=== PATIENT | female | born 1955 | race American Indian/Alaskan Native ===

== ENCOUNTER 2019-10-02 10:44 | Inpatient (IN) | payer BC, OTHER ==
[~2019-10-02] VITALS: Ht 165.1 cm; Wt 61.2 kg
[~2019-10-02 10:44] MED LIST: ACYCLOVIR800 MG PO; ADVAIR 250-501 EACH INH; AMITRIPTYLINE H25 MG PO; B COMPLEX1 EACH PO; BACTRIM 400-801 EACH PO; CALCIUM CARBON650 MG PO; DIFLUCAN200 MG PO; DRONABINOL2.5 MG PO; FLAXSEED1000 MG PO; LORAZEPAM0.5 MG PO; LOTEMAX3.5 GM OPTH; MAG-OXIDE200 MG PO; ONDANSETRON ODT8 MG PO; PILOCARPINE HCL5 MG PO; REGLAN10 MG PO; RESTASIS1 DROP OD; SALAGEN5 MG PO; SERTRALINE HCL50 MG PO; TACROLIMUS0.5 MG PO; VITAMIN D350 MCG PO; WELLBUTRIN XL150 MG PO; ZOLPIDEM TARTRA10 MG PO
[2019-10-02] MEDS ORDERED: CIPROFLOXACIN500 MG PO (15:35)
[2019-10-02] MEDS ORDERED: ONDANSETRON ODT8 MG SL (15:58)
[2019-10-02] MEDS ORDERED: ALPRAZOLAM0.25 MG PO (15:59)
--- NOTE | 2019-10-02 17:23 | NUR ---
Medications reconciled using pharmacy records and patient interview
--- NOTE | 2019-10-02 17:33 | NUR ---
PT RESINT IN SEMIFOWLERS POSITION PT APPEARS TO HAVE TREMORS AND STATES "I FEEL SO COLD CAN I GET A WARM BLANKET". VS'S TAKEN PT FEBRILE TEMP 102.6 ORAL. BP 89/58 HR 108. PT DENIES PAIN NAUSEA OR SOB ON 1LPNC AND O2 SAT IS 91%. DR WASHINGTON NOTIFIED AND NEW ORDERS RECEIVED FOR BLOOD CX'S AND URINE CULTURES. NO FURTHER ORDERS AT THIS TIME. WILL CTM. CALL LIGHT AND H2O IN REACH. PT DNEIES FURTHER NEEDS OR CONCERNS.
--- NOTE | 2019-10-02 18:46 | NUR ---
IN TO SEE PATIENT. PT SITTING UP EATING DINNER AND DRINKING H2O. PT'S VS'S TAKEN -SEE VS FLOW SHEET. MD NOTIFIED OF ABNORMAL VS'S. MD TO PUT IN ORDER FOR 500ML BOLUS OF NS. NO FURTHER ORDERS AT THIS TIME. WILL CTM.
--- NOTE | 2019-10-02 19:20 | NUR ---
SHIFT REPORT RECEIVED FROM TOBYORDOMINICK DOTY. PT RESTING IN BED, IV BOLUS INFUSING, PRIMARY IV FLUIDS DELAYED. SITE WNL. PT ON 1LNC, RESPIRATIONS EVEN AND UNLABORED. NO DISTRESS NOTED, CALL LIGHT IN REACH.
--- NOTE | 2019-10-02 19:25 | NUR ---
ORE PUNCHER TO MIX NEW ORDER FOR IV VANCO. AWAITING MED.
--- NOTE | 2019-10-02 21:15 | NUR ---
BLAST FURNACE KEEPER HERE WITH IV VANCO. IV VANCO INFUSING PER MD ORDERS, IV SITE WNL. NO FURTHER NEEDS. CALL LIGHT IN REACH.
--- NOTE | 2019-10-02 21:30 | NUR ---
DR WASHINGTON MADE AWARE OF MOST RECENT BP RESULT OF 89/45, MAP OF 55, HR 95, ORAL TEMP OF 101.0. 96% ON 1LNC. PT UP 2PA TO BSC TO VOID, DIRECTIONS FOR CLEAN CATCH VERBALIZED TO PT. PT VERBALIZES UNDERSTANDING, 500 MLS OUTPUT NOTED. DARK YELLOW IN COLOR. UA SAMPLE COLLECTED BY THIS RN AND SENT TO LAB. PT BACK IN BED 1PA, DENIES DIZZINESS OR LIGHTHEADEDNESS AT THIS TIME. WILL CONTINUE TO MONITOR. DR WASHINGTON MADE AWARE OF ALL INFORMATION ABOVE. PREPARING PT FOR TRANSFER TO CCU. NO FURTHER NEEDS VERBALIZED BY PT AT THIS TIME, CALL LIGHT IN REACH.
--- NOTE | 2019-10-02 22:10 | NUR ---
TELEPHONE REPORT GIVEN TO CCU MARILOU HATHAWAY. ALL QUESTIONS ANSWERED. PT TRANSFERED VIA BED WITH HELP FROM MARILOU YATES TO CCU. BELONGINGS WITH PT IN CCU ROOM. CCU MARILOU HATHAWAY TO RESUME CARE FOR PT.
--- NOTE | 2019-10-02 23:16 | NUR ---
PT TO CCU PER BED AT 2213. IS AWAKE ALERT NO C/O EXCEPT FEELING TIRED. DR WASHINGTON IN DEPT. HAS IV ABX INFUSING. PT REQUESTING GRAHM CRACKERS AND WARM TEA. 2ND IV SITE STARTED AND LEVOPHED INFUSION STARTED ANT 5MCG/MIN AT 2240.
--- NOTE | 2019-10-03 00:36 | NUR ---
AWAKENS EASILY, HAD NOTED INTERMIT SHIVERING IN SLEEP, BUT JUST OF SHOULDER. NOW MORE GENERALIZED SHIVERING NOTED. T 102.9, GIVEN 650MG TYLENOL PO. UP TO BSC TO VOID. CONT ON LEVOPHED AT 3MCG/MIN.
--- NOTE | 2019-10-03 02:25 | NUR ---
UP TO BSC TO VOID. FLORESITA BEING UP WELL.
--- NOTE | 2019-10-03 03:55 | NUR ---
AWAKENED, INC SMALL AMT URINE, UP TO BSC TO VOID. FLORESITA WELL. CONT ON LEVOPHED AT 3CMG/MIN.
--- NOTE | 2019-10-03 04:36 | NUR ---
MIRTA AT 0230 PT AWAKE, C/O BACK PAIN, "IT'S HURTING PRETTY BAD". GIVEN 650MG TYLENOL.
--- NOTE | 2019-10-03 06:22 | NUR ---
AWAKE, UP TO VOID, FLORESITA WELL. C/O MILD GARCIA, GIVEN 650MG TYLENOL PO. CONTS ON LEVOPHED AT 3MCG/MIN
--- NOTE | 2019-10-03 07:30 | NUR ---
PATIENT RESTING IN BED WITH CALL LIGHT IN REACH. PATIENT CALLS APPROPRIATELY. PATIENT REMAINS ON LEVOPHED GTT. WILL TRY AND TITRATE APPROPRIATE. NO OTHER NEEDS AT THIS TIME. WILL CONTINUE TO CLOSELY MONITOR.
--- NOTE | 2019-10-03 09:30 | NUR ---
PATIENT RESTING IN BED. PATIENT HAS BEEN UP TO THE BEDSIDE CAMMODE WITH STAFF. PATIENT IS STABLE ON HER FEET, STAFF THERE TO MANAGE CORDS. PATIENT ASSESSMENT COMPELTED. BREATH SOUNDS CLEAR AND DIMINISHED. BOWEL TONES ACTIVE. PATIENT FINISHED BREAKFAST. FRESH WATER AT THE BEDSIDE. WILL CONTINUE TO CLOSELY MONITOR.
--- NOTE | 2019-10-03 11:25 | NUR ---
PT ALERT, ORIENTED AND FEELING SOMEWHAT IMPROVED. PT NIBBLED ON CRACKERS AND APPLESAUCE DURING VISIT. PT IS STRUGGLING WITH GOING TO HER DAUGHTERS DURING THIS TIME OF TREATMENT, WONDERING IF TREATMENT CAN BE MOVED DOWN TO [place] PT MENTIONED THAT HER PREVIOUS CANCER DRS WERE AT [facility] AND WOULD BE OF GREAT BENEFIT TO HER SHE FEELS. HER BREAST CANCER HAS RETURNED WITH METS TO BONE. PT ASKED IF SHE FELT A NEED, COULD I CONTACT [facility]. I LET HER KNOW THAT OF COURSE WE WOULD. PT REQUESTED PRAYER, I ENCOURAGED HER TO STRONGLY CONSIDER GOING TO HER DAUGHTERS'. SHE SAID SHE HAS DONE THIS BEFORE
--- NOTE | 2019-10-03 11:30 | NUR ---
PATIENT RSTING IN BED. PATIENT REMAINS ON 2MCG/MIN. WILL CONTINUE TO WEAN PATIENTS BLOOD PRESSURE CAN TOLERATE. WILL CONTINUE TO CLOSELY MONITOR.
--- NOTE | 2019-10-03 14:10 | NUR ---
PATIENT RESTING IN BED. DISCUSSED PLAN OF CARE WITH PATIENT. PATIENT AND FAMILY FILLED OUT POLST FORM. CASE MANAGEMENT WILL BE INTO DISCUSS DISHCHARGE PLANNING WITH PATIENT. PATIENT REQUESTED TO HAVE A BED BATH. PATIENT HAS BEEN ON AND OFF LEVOPHED GTT TODAY. PATIENT ONLY REQUIRING SMALL AMOUNTS. PATIENT LEVOPHED GTT AT 2MCG/MIN. WILL CONTINUE TO CLOSELY MONITOR.
--- NOTE | 2019-10-03 16:00 | NUR ---
Met with Anayeli who appears tired and ill. CM assessment completed and asked pt how I can help her. She request I help her write her wishes for her family. She is wanting to stop treatment and return to [place] near her children either to their home or to a hospice house. Pt lived in [place] in her 20s and returned 8 years ago to assist her mother. She would like her cousin, Cayden Villalba contacted and info passed to her: 1. She would like traditional dressing at her . 2. Small viewing at [facility] (small due to Covid virus) 3. [facility] near her grandmother. (Small due to covid virus) 4. She would like Yusuf Caputo to complete her service and sing at the cemetary. I will attempt to contact him for her. 5. She would like to write her own obituary. She does not want her sister to write her obit as they have had a falling out. I will find an obituary guide for her to follow. 6. She requests I contact the [place] to find how to access the fund. 7. When she passes, she would like body returned for burial in [place] within 3 days as is traditional. She requests I speak with Cayden about this. Discussed we will meet with her daughter tomorrow to discuss above. Called and spoke with luis daniel Richards. Cayden states she is over the fund and can work on this. Informed I will meet with pt and her daughter tomorrow. Cayden will contact Yusuf Caputo and speak with him or get his number so I may call. She will call me later or tomorrow. Will work with Anayeli to meet her goals of with dignity.
--- NOTE | 2019-10-03 16:00 | NUR ---
PATIENT RESTING IN BED. SPOKE WITH SIMBA ZAMARRIPA. SIMBA RN WAS IN TO SPEAK WITH PATIENT REGUARDING PLAN OF CARE AND HER WISHES AND DISCHARGE PLANS. NO OTHER NEEDS AT THIS TIME. WILL CONTINUE TO CLOSELY MONITOR.
--- NOTE | 2019-10-03 17:35 | NUR ---
UPDATED MD THAT PATIENTS FEVER UP TO 101.3. PER MD BLOOD CULTURES ORDERED. PATIENT WAS DOWN TO XRAY AND TOLERATED WELL. PATIENTS HR 100. BLOOD PRESSURE 103/65. WILL MONITOR AND TITRATE LEVOPHED OFF IF PATIETNS BLOOD PRESSURE CAN TOELRATE.
--- NOTE | 2019-10-03 18:45 | NUR ---
TITRATED LEVOPHED OFF AT 1845. WILL MONITOR PATIENTS BLOOD PRESSURE. MEDICATIONS ADMINISTERED. NO OTHER NEEDS AT THIS TIME. WILL CONTINUE TO CLOSELY MONITOR.
--- NOTE | 2019-10-03 20:15 | NUR ---
ASSESSMENT COMPLETED. PT DENIES PAIN. STATES SHE IS FEELING SLIGHTLY SOB, R.T. CALLED AND BREATHING TREATMENT GIVEN. LUNGS CLEAR/DIM, 1L O2 VIA NC IN PLACE. IV SITES PATENT, INFUSING WNL. RECHECKED TEMP: 99.3 ORALLY. FRESH WATER PROVIDED. PT DENIES FURTHER REQUESTS AT THIS TIME, CALL LIGHT WITHIN REACH.
--- NOTE | 2019-10-03 21:45 | NUR ---
LEVOPHED DRIP RESTARTED AT THIS TIME @ 2MCG/MIN, BP: 83/38(50), HR:93.
--- NOTE | 2019-10-03 22:40 | NUR ---
LEVOPHED DRIP TITRATED TO 1 MCG/MIN. BP: 101/50(63) HR: 98.
--- NOTE | 2019-10-03 23:15 | NUR ---
LEVOPHED TITRATED TO 2 MCG/MIN. BP: 86/43(54) HR: 95.
--- NOTE | 2019-10-04 | NUR ---
ASSESSMENT COMPLETED, NO CHANGES FROM PREVIOUS. REMAINS ON 4L O2 VIA NC. LEVOPHED CONTINUES TO REMAIN OFF. DENIES PAIN. UP TO BSC TO VOID AND RETURNED TO BED. SECOND UNIT OF BLOOD CONTINUES TO INFUSE. NO FURTHER REQUESTS, CALL LIGHT WITHIN REACH.
--- NOTE | 2019-10-04 00:20 | NUR ---
ASSESSMENT COMPLETED. PT CONTINUES TO DENY PAIN. TEMP 99.8, PRN TYLENOL GIVEN. LUNGS REMAIN CLEAR/DIM, 1L O2 VIA NC IN PLACE. HR REGULAR, LEVOPHED REMAINS AT 2 MCG/MIN. PT TO BSC TO VOID, PT REPORTS SLIGHT DYSPNEA WITH ACTIVITY. NO FURTHER REQUESTS AT THIS TIME, CALL LIGHT WITHIN REACH.
--- NOTE | 2019-10-04 00:20 | NUR ---
ASSESSMENT COMPLETED. PT CONTINUES TO DENY PAIN. TEMP 99.8, PRN TYLENOL GIVEN. LUNGS REMAIN CLEAR/DIM, 1L O2 VIA NC IN PLACE. HR REGULAR, LEVOPHED REMAINS AT 1 MCG/MIN. PT TO BSC TO VOID, PT REPORTS SLIGHT DYSPNEA WITH ACTIVITY. NO FURTHER REQUESTS AT THIS TIME, CALL LIGHT WITHIN REACH.
--- NOTE | 2019-10-04 01:30 | NUR ---
LEVOPHED TITRATED TO 4 MCG/MIN FOR BP 81/42(52) HR: 102.
--- NOTE | 2019-10-04 04:00 | NUR ---
ASSESSMENT COMPLETED, NO CHANGES FROM PREVIOUS. NEW BAG LEVOPHED HUNG, TITRATED TO 3 MCG/MIN FOR BP:113/61(73) HR:88. PT DENIES NEEDS AT THIS TIME, CALL DYLAN GILLILAND.
--- NOTE | 2019-10-04 04:45 | NUR ---
LEVOPHED TITRATED TO 4 MCG/MIN FOR BP: 87/41(53) HR:92.
--- NOTE | 2019-10-04 07:39 | NUR ---
PT IS ASLEEP RESP EVEN AND UNLABORED AT THIS TIME.
--- NOTE | 2019-10-04 08:00 | NUR ---
WHEN AWAKEN PT VS TAKE AND TEMP 100.2 ORAL, HAD PT USE THE is AT THE BEDSIDE AND TEMP DECREASED 99.8 ORAL AT 0820. BKF ORDER AND ALL QUESTIONS ANSWERED AT THIS TIME. LEVOPHED GTT DECREASED TO 2MCG AT THIS TIME 08:20
--- NOTE | 2019-10-04 09:00 | NUR ---
LEVOPHED DRIP INCREASED TO 4MCG DUE TO DECREASED BP AND MAP. O2 INCREASED TO 2L'S VIA NC DUE TO SPO2 88-86 ON 1L'S
--- NOTE | 2019-10-04 09:30 | NUR ---
Received a call from Cayden Ramirez, Anayeli's cousin. She states she is over the fund and Anayeli does not need to do anything to use, she will take care of this. She will also work with burial planning at [facility] near liliane's grandmother. She states [facility] will transport Anayeli to [place] when she passes. the traditional dressing is not possible due to covid, people are having the mortuary do this. She gave me Yusuf Kyaw Payton phone number, I was unable to contact or leave a message. Will give the number to Anayeli. Will speak with pt and daughter when daughter Kait visits today.
--- NOTE | 2019-10-04 09:47 | NUR ---
PT UP TO BS COMMODE, VOIDED AND BACK TO BED. WARM BLANKET GIVEN TO PT AND DR ORTEGA WENT INTO SEE HER AT THIS TIME.
--- NOTE | 2019-10-04 10:20 | NUR ---
LEVOPHED DRIP OFF AT THIS TIME. MAP 76 AT THIS TIME.
--- NOTE | 2019-10-04 10:37 | NUR ---
LEVOPHED DRIP OFF AT THIS TIME.
--- NOTE | 2019-10-04 12:51 | NUR ---
Called and spoke with Charles at [facility], community nurse. He states he can transport Anayeli to [place] as soon as the signs a certificate. He is also aware the the pilot station not doing the Dressing Ceremony and he has been completing, he requests daughter's call as they business is closed and open by appointment only. [facility] [phone].
--- NOTE | 2019-10-04 12:54 | NUR ---
PT AWAKE, DOES NOT WANT PERSONAL CARE DONE AT THIS TIME, WILL WAIT TILL HER DAUGHTER GETS HERE. RT REMAINS IN THE ROOM AT THIS TIME.
--- NOTE | 2019-10-04 13:09 | NUR ---
PT DAUGHTER IS HERE AT THIS TIME. WILL HAVE PICC LINE NURSE TO LOOK FOR IV SITE.
--- NOTE | 2019-10-04 14:54 | NUR ---
WAS ASKED TO START A SECOND LINE FOR THIS PT. ATTEMPTED TO OBTAIN IV ACCESS TWICE WITH THE ULTRASOUND. BOTH WERE UNSUCCESSFUL. THE SECOND IV ATTEMPT GAVE BLOOD RETURN BUT WAS SWELLING WITH EVERY FLUSH OF SALINE. IV DISCONTINUED. PRESSURE DRESSING APPLIED. PT'S RN NOTIFIED.
--- NOTE | 2019-10-04 15:33 | NUR ---
VAIBHAV SANTOYO UNABLE TO PLACE A MID LINE. WAS ABLE TO OBTAIN A SITE, BUT THE SITE WOULD BRUISE AND SWELLING NOTED, BUT ABLE TO GET BLOOD RETURN, THEN YOU WOULD FLUSH AGAIN WITH SALINE AND THE SITE WOULD SWELL. DR ORTEGA NOTIFIED OF THIS ISSUES WITH IV SITES AND THAT PT BP AT TIMES IS LESS THAN [address] MEDINA NOTIIFIED BY DR ORTEGA AND A CENTRAL LINE MAYBE PLACED. EXPLAINED THIS TO PT AND SHE UNDERSTANDS, BUT TOLD HER DR MEDINA WITH TALK WITH HER ALSO WHEN HE COMES INTO THE HOSPITAL. PT SIGNED BLOOD CONSENT AT THIS TIME, BUT BLOOD WILL NOT BE READY TILL MONDAY SOMETIME. 10-05-19 PER LAB.
--- NOTE | 2019-10-04 16:28 | NUR ---
PT TRYING TO REST AT THIS TIME, PT GIVEN ADDITIONAL ENSURE JUICE AT THIS TIME. PT DID NOT EAT LUNCH WAS NOT HUNGRY.
--- NOTE | 2019-10-04 18:57 | NUR ---
PT DAUGHTERS ARE HER AND BROUGHT IN DINNER FOR HER. CALLED INTO DR ORTEGA AND INFORMED HIM THAT THEY ARE HERE. HE WILL BE UP AFTER HIS VISIT TO THE ED.
--- NOTE | 2019-10-04 19:21 | NUR ---
TEMP INCREASED TYLENOL 650MG PO GIVEN AND COUGH MEDS GIVEN ALSO AT THIS TIME. DR ORTEGA INTO TALK WITH DAUGHTERS AT THIS TIME.
--- NOTE | 2019-10-04 20:00 | NUR ---
DR. ORTEGA IN ROOM TO SPEAK WITH PT AND DAUGHTER'S AT LENGTH ABOUT PLAN OF CARE AND THE CONSIDERATION FOR HOSPICE/PALLIATIVE CARE. ALL QUESTIONS ANSWERED, PATIENT AND FAMILY WISH TO GIVE THE ANTIBIOTICS A FEW MORE DAYS BEFORE THEY MAKE ANY DECISIONS ABOUT TRANSITIONING TO COMFORT CARE. ASSESSMENT COMPLETED-SEE DOCUMENTATION. CENTRAL LINE DRESSING CHANGED BECAUSE IT WAS COMING UP AT [facility]. STERILE PROCEDURE MAINTAINED. ALL 3 LUMES RETURN BLOOD AND FLUSH EASILY. CALL LIGHT WITHIN REACH.
--- NOTE | 2019-10-04 20:45 | NUR ---
FIRST UNIT OF BLOOD STARTED AT 2029, VERIFIED WITH MARILOU BOCANEGRA. BLOOD IS CMV NEGATIVE AND IRRADIATED. PT IS TOLERATING WELL, NO SIGNS OF ADVERSE REACTION NOTED.
--- NOTE | 2019-10-04 22:30 | NUR ---
FIRST UNIT OF BLOOD FINISHED. NO S/SX OF REACTION NOTED. VITAL SIGNS STABLE.
--- NOTE | 2019-10-04 23:05 | NUR ---
SECOND UNIT OF PRBC'S STARTED AT 2250, NO S/SX OF REACTION, PT TOLERTING WELL, VITAL SIGNS STABLE.
--- NOTE | 2019-10-05 02:15 | NUR ---
SECOND UNIT OF BLOOD COMPLETED AT THIS TIME. PT TOLERATED WELL, NO S/SX OF REACTION. VITAL SIGNS STABLE. PT RESTING COMFORTABLY, NO SIGNS OF DISTRESS. WILL CONTINUE TO MONITOR.
--- NOTE | 2019-10-05 04:30 | NUR ---
ASSESSMENT COMPLETED, NO CHANGES FROM PREVIOUS. LEVOPHED REMAINS OFF. OXYGEN REMAINS AT 4L. PT CONTINUES TO DENY PAIN. CENTRAL LINE DRESSING INTACT, SITE WNL. NO REQUESTS AT THIS TIME, CALL LIGHT WITHIN REACH.
--- NOTE | 2019-10-05 05:04 | NUR ---
RESTARTED LEVOPHED DRIP AT 2MCG/MIN AT THIS TIME FOR BP:86/48(57) HR: 94.
--- NOTE | 2019-10-05 05:33 | NUR ---
LEVOPHED OFF AGAIN. BP: 113/62(73) HR: 99.
--- NOTE | 2019-10-05 06:05 | NUR ---
CALLED AND SPOKE TO DR. ORTEGA SINCE PATIENT HAS NOW HAD 2 RUNS OF SVT. MOST RECENT LASTED ~6 SECONDS WITH RATE IN 170'S. PT WAS ASYMPTOMATIC AND JUST RESTING IN BED WHEN IT OCURRED. ORDER RECEIVED TO ADD MAGNESIUM TO THIS MORNING'S LABS.
--- NOTE | 2019-10-05 07:30 | NUR ---
PATIENT SHIFT REPORT RECIEVED FROM MANAGER OF CASE RN. PATIENT RESTING IN BED WITH FAMILY AT THE BEDSIDE. WILL CONTINUE TO CLOSELY MONITOR.
--- NOTE | 2019-10-05 08:29 | NUR ---
IN TO SEE PATIENT. PATIENT STILL RESTING AT THIS TIME. PATIENTS DAUGHTER WINTER AT THE BEDSIDE AWAKE. NO NEEDS AT THIS TIME. WILL ALLOW PATIENT TO CONTINUE RESTING AT THIS TIME.
--- NOTE | 2019-10-05 09:56 | NUR ---
PATIENT ASSISTED UP TO THE CAMMODE. PATIENT TOLERATED WELL. PATIENT DENEIS SOB AT THIS TIME. BREATH SOUNDS DIMINISHED. BOWEL TONES ACTIVE. PATIENTS DAUGHTERS OUT OF THE ROOM TO GO GET BREAKFAST FOR THE PATIENT. FRESH WATER PROVIDED AT THE BEDSIDE. PATIENT DENEIS ANY OTHER NEEDS AT THIS TIME. WILL CONTINUE TO CLOSELY MONITOR.
--- NOTE | 2019-10-05 13:00 | NUR ---
PATIENT RESTING IN BED. SHAVED PATIENTS HEAD PER PATIENTS REQUEST. MD ORTEGA APPROVED TO SHAVE PATIENTS HEAD. BED BATH GIVEN. NEW BEDDING PLACED. PATIENT REMAINS UP IN THE CHAIR AT THIS TIME. PATIENTS DAUGHTERS ALLOWED IN ROOM WITH PATIENT. NO OTHER NEEDS AT THIS TIME. WILL CONTINUE TO CLOSELY MONITOR.
--- NOTE | 2019-10-05 14:43 | NUR ---
PATIENT RESTING IN THE CHAIR. PATIENT VISITING WITH FMCHRISTY. VITALS TAKEN. PATIENT REQUESTING TO HAVE HER BLOOD PRESSURE CUFF REMOVED. LUNCH ORDERED. NO OTHER NEEDS AT THIS TIME. WILL CONTINUE TO CLOSELY MONITOR.
--- NOTE | 2019-10-05 16:53 | NUR ---
PATIENT RESTING IN BED TAKING A NAP WITH FAMILY IN THE ROOM. PATIENT DENEIS ANY NEEDS AT THIS TIME. OTHER RN IN TO GIVE MEDICATIONS. VITALS TAKEN. PATIENTS RR 34-40 WITH SLEEP. MD ORTEGA AWARE. WILL CONTINUE TO CLOSELY MONITOR.
--- NOTE | 2019-10-05 18:00 | NUR ---
ASSISTED PATIENT UP TO THE CAMMODE. PATIENT TOELRATED WELL. DINNER ORDERED. FAMILY AT THE BEDSIDE. WILL CONTINUE TO CLOSELY MONITOR.
--- NOTE | 2019-10-05 18:48 | NUR ---
PATIENT STATES SHE IS A LITTLE NAUSEATED AND REQUESTED SOME ZOFRAN PRIOR TO EATING DINNER. pRN ZOFRAN GIVEN. DINNER AT THE BEDSIDE. PATIENTS DAUGHTER ASSISTING PATIENT. NO OTHER NEEDS AT THIS TIME. WILL CONTINUE TO CLOSELY MONITOR.
--- NOTE | 2019-10-05 20:10 | NUR ---
VISITING WITH DAUGHTER. HAS NO C/O.
--- NOTE | 2019-10-05 21:45 | NUR ---
HAS INC COUGH, GIVEN ROBITUSSIN, AND GIVEN ALPRAZOLAM FOR SLEEP.
--- NOTE | 2019-10-06 00:11 | NUR ---
AWAKENED BRIEFLY FOR ASSESSMENT. NO C/O. RESP REMAIN TACHY AND SHALLOW WHEN ASLEEP.
--- NOTE | 2019-10-06 01:30 | NUR ---
ASSISTED PATIENT UP TO [facility]. PATIENT TOELRATED WELL. ASSISTED PATIENT BACK TO BED. WARM BLANKET AND COUGH SYRUP PROVIDED PER REQUEST. PATIENT DENIED ANY FURTHER NEEDS. CALL LIGHT IN REACH. IV ABX FINISHED AT THIS TIME. PRIMARY FLUIDS INFUSING TKO, SITE APPEARS WNL.
--- NOTE | 2019-10-06 04:04 | NUR ---
PT CALLED TO USED BSC. T 101.8, GIVEN 650MG TYLENOL PO. SATS 89-92% ON 4L NC.
--- NOTE | 2019-10-06 06:05 | NUR ---
TEMP 98.8. UP TO BSC TO VOID. FLORESITA WELL.
--- NOTE | 2019-10-06 07:30 | NUR ---
PATIENT RESTING IN BED AT THIS TIME. CALL LIGHT IN REACH. NO NEEDS AT THIS TIME. WILL ALLOW PATIENT TO CONTINUE RESTING AT THIS TIME.
--- NOTE | 2019-10-06 09:30 | NUR ---
PATIENT SHIFT ASSESSEMENT COMPLETED. PATIENT BREATH SOUNDS CLEAR ANDDIMINISHED WITH OCCASIOANL DRY COUGH. PATIENT RR 34-38. SPO2 93% ON 5L NC. PATIENT DENEIS SOB AT THIS TIME. BOWEL TONES ACTIVE. PATIENT HAD A BM LAST NIGHT. PATIENT DOES NOT HAVE MUCH OF AN APPETITE. ORDERED SOME Y[place]URT FOR BREAKFAST. TRACE EDEMA NOTED IN BLE. PATIENT WILL BE GOING DOWN FOR AN X-RAY. WILL CONTINUE TO CLOSELY MONITOR.
--- NOTE | 2019-10-06 10:15 | NUR ---
PATIENT DOWN FOR 2-VIEW XRAY AND TOELATED WELL. THIS RN WENT WITH PATIENT. PATIENT ASSISTED BACK TO BED WITH NO ISSUES. WARM BLANKET PROVIDED. WILL CONTINUE TO CLOSELY MONITOR.
--- NOTE | 2019-10-06 11:40 | NUR ---
PATIENT LABS DRAWN FROM PATIENTS CENTRAL LINE. PATIENT TOELRATED WELL. PATIENTS FAMILY AT THE BEDSIDE. PATIENT DENEIS ANY OTHER NEEDS AT THIS TIME. WILL CONTINUE TO CLOSELY MONTIOR.
--- NOTE | 2019-10-06 11:53 | CONS ---
[facility] [address], [place] [address] Signed DATE OF CONSULTATION: 10/04/2019 CONSULTING PHYSICIAN: Nikkie Medina MD REQUESTING PHYSICIAN: Jonny Black MD PROBLEM: Need for central venous access for inotropes. HISTORY: This is a very pleasant 63-year-old woman, who is a patient of Dr. Christina and has been admitted by Dr. Aranda at approximately 3:30 on October 02, 2019, with thrombocytopenia and hypotension. She has episodically required pressor agents. She is considered to have neutropenia and thrombocytopenia related to chemotherapy. 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 Central venous access is requested for blood draws as well as for chemotherapy as described. Her hematocrit is noted to be 18.4 with a white count of 1.3 and a platelet count of 25,000. A PICC line was requested by personnel. However, given her thrombocytopenia, trepidation was expressed regarding that. On that basis, a central venous catheter has been recommended. PERTINENT PHYSICAL EXAMINATION: GENERAL: Pleasant woman who does not look systemically toxic. Reverse isolation procedures are in place. VITAL SIGNS: Blood pressure 91/53, respirations 17, temperature 99.1, and pulse rate is 102. NECK: No thyromegaly or cervical adenopathy. There is no tracheal deviation. Both clavicles are nondeformed. CHEST: Normal respiratory excursion without tachypnea. ABDOMEN: Scaphoid and flat. EXTREMITIES: No clubbing, cyanosis, or edema. I see no petechiae currently. ASSESSMENT: Central venous access is requested for blood draws and inotropic support as necessary. We are mindful of her pancytopenia, in particular thrombocytopenia. She is due for transfusion therapy of red cells. Electronically Signed By: NIKKIE MEDINA MD 10/06/19 1153 PATIENT NAME: DAMION GAMBOA CONSULTATION DATE OF : 59 REPORT #: [id number] PHYSICIAN: NIKKIE MEDINA MD PCP: KHANG PARSONS MD REPORT IS CONFIDENTIAL AND NOT TO BE RELEASED WITHOUT AUTHORIZATION [facility] [address], [place] [address] Signed Though I doubt it to be any less risky for a central venous catheter by the internal jugular vein than a PICC line, I believe it can be done without too much issue and we discussed in detail the risks of placement of a right internal jugular catheter, including but not limited to bleeding, infection, arterial puncture, hematoma development, and so forth. She understands and wished to proceed. MD KAM Houser/HENNAL /[id number] cc: MD Jonny Vieira MD Copies: MARILYNN CHRISTINA MD, LOHITH VEERAPPA MD ~ Electronically Signed By: NIKKIE MEDINA MD 10/06/19 1153 PATIENT NAME: DAMION GAMBOA CONSULTATION DATE OF : 59 REPORT #: [id number] PHYSICIAN: NIKKIE MEDINA MD PCP: KHANG PARSONS MD REPORT IS CONFIDENTIAL AND NOT TO BE RELEASED WITHOUT AUTHORIZATION
--- NOTE | 2019-10-06 11:53 | OR ---
[facility] [address], [place] [address] Signed DATE OF OPERATION: 10/04/2019 SURGEON: Nikkie Medina MD PREOPERATIVE DIAGNOSES: 1. Need for central venous catheterization for inotropics support. 2. Pancytopenia. Platelet count 23,000, white count 1.6, hematocrit 17. POSTOPERATIVE DIAGNOSES: 1. Need for central venous catheterization for inotropics support. 2. Pancytopenia. Platelet count 23,000, white count 1.6, hematocrit 17. PROCEDURE PERFORMED: Right internal jugular central venous catheter placement (Arrow Blue Tip triple-lumen catheter). ANESTHESIA: 1% lidocaine. INDICATION: A 63-year-old Italian woman with chemotherapy-related pancytopenia including thrombocytopenia with platelet count of 23,000. She has no overt bleeding currently. Transfusion therapy is anticipated for her hematocrit and she is in reverse isolation at this time. The risks of bleeding, infection, arterial puncture causing hematoma, and other unforeseen complications were reviewed in detail. She understands and wished to proceed. FINDINGS: Single pass access to the right internal jugular vein was noted. Dark nonpulsatile blood was noted. Catheter was placed without problem, showing good function of the catheter. Postprocedure, chest x-ray showed no evidence of complication. The tip of the catheter in the atriocaval junction. DESCRIPTION OF PROCEDURE: The bed was placed in the Trendelenburg position. The patient placed with arms at side and face turned to the left. The neck and chest and the infraclavicular area were prepared with a chlorhexidine solution. Per protocol sterile technique, 1% lidocaine was injected over the right sternocleidomastoid muscle inferior to the crossing anterior facial vein. Using Arrow Blue Tip triple-lumen catheter kit using a Seldinger technique, the right internal jugular vein was easily accessed on the first pass showing Electronically Signed By: NIKKIE MEDINA MD 10/06/19 1153 PATIENT NAME: DAMION GAMBOA OPERATIVE REPORT DATE OF : 59 REPORT #: [id number] PHYSICIAN: NIKKIE MEDINA MD PCP: KHANG PARSONS MD REPORT IS CONFIDENTIAL AND NOT TO BE RELEASED WITHOUT AUTHORIZATION [facility] [address], [place] [address] Signed dark nonpulsatile blood. A flexible J-wire was passed down the needle without problem. There was no sign of bleeding or other problem. The site was incised with an #11 blade and dilated as usual with a blue dilator and a previously inspected and irrigated Arrow Blue Tip triple-lumen catheter passed over the wire. The wire was removed and aspiration on the distal port showed dark nonpulsatile blood. Claves had been applied to the port sites and the distal port was flushed with sterile saline. Given the patient's body size, the catheter was withdrawn several centimeters, placed in a loop and an enclosed collar device used to secure to the skin. An anti-infective disk was applied as was a SorbaView dressing. She tolerated procedure well. Blood loss was minimal. A postprocedure chest x-ray showed the tip of the catheter in the atriocaval junction. No evidence of complication. MD KAM Houser/CRIS /[id number] cc: MD Catalino Church MD Copies: FÉLIX ORTEGA MD, ROBERT C MD ~ Electronically Signed By: NIKKIE MEDINA MD 10/06/19 1153 PATIENT NAME: DAMION GAMBOA OPERATIVE REPORT DATE OF : 59 REPORT #: [id number] PHYSICIAN: NIKKIE MEDINA MD PCP: KHANG PARSONS MD REPORT IS CONFIDENTIAL AND NOT TO BE RELEASED WITHOUT AUTHORIZATION
--- NOTE | 2019-10-06 14:00 | NUR ---
PATIENT ASSISTED UP TO THE CHAIR. BEDBATH GIVEN. PATIENT WASHED HER FACE AND BRUSHED HER TEETH ON HER OWN. PATIENT TOLERATED WELL. NEW GOWN AND PANTS OFFERED. BEDDING CHANGED. CLEANED PATIENTS ROOM. PATIENT DENIES ANY OTHER NEEDS AT THIS TIME. WILL CONTINUE TO CLOSELY MONITOR.
--- NOTE | 2019-10-06 15:50 | NUR ---
PATIENT RESTING IN THE CHAIR WITH FAMILY AT THE BEDSIDE. ENCOURAGED PATIENT TO STAY UP AND USE INCENTIVE SPIROMETER WHILE SITTING IN THE CHAIR. PATIENT AGREEABLE TO PLAN OF CARE. ASSESSMENT COMPELTED. PATIENT STATES SHE IS MORE SOB AT TIMES ESPEACIALLY WITH ACTIVITY. RT IN TO SEE PATIENT. NO OTHER NEEDS AT THIS TIME. WILL CONTINUE TO CLOSELY MONITOR.
--- NOTE | 2019-10-06 17:15 | NUR ---
CALLED MD ORTEGA TO UPDATE THAT PATIENT SPIKED A TEMP OF 101.5. PER MD MERINO BLOOD CULTURES. NEW ORDERE PLACE. WILL AWAIT PERFORMING ARTIST. PATIENT DENIES SOB AT THIS TIME, BUT IS CHILLED. WILL GIVE TYLENOL ONCE CULTURES ARE DRAWN. NO OTHER ORDERES AT THIS TIME. WILL CONTINUE TO CLOSELY MONTIOR.
--- NOTE | 2019-10-06 19:24 | NUR ---
XANAX, ERICKA. COUGH MED GIVEN.
--- NOTE | 2019-10-06 19:25 | NUR ---
ASSISTED PATIENT TO CHANGE GOWN FOR COMFORT. BED POSITIONED FOR COMFORT AND ROOM CLEANED UP. PATIENT DENIED ANY NEEDS AT THIS TIME. CALL LIGHT IN REACH.
--- NOTE | 2019-10-06 20:30 | NUR ---
PATIENT PROVIDED WITH SCHEDULED PO MEDS. RT RECENTLY FINISHED NEB TREATMENT. PATIENT'S LUNG SOUNDS ARE DIM THROUGHOUT, WITH COARSE AIR MOVEMENT HEARD IN CARLITOS. PATIENT TOLERATING 5L NC. SMALL AMOUNT OF THICK WHITE SPUTUM NOTED WITH PATIENT'S COUGHING. PATIENT HAD SOME MILD NAUSEA, WHICH HAS IMPROVED AFTER PRN ZOFRAN. DENIES PAIN. CENTRAL LINE RETURNS BLOOD IN ALL 3 LUMENS, IV ABX INFUSING. VS STABLE. PATIENT'S TEMP DOWN, 99.7 F. PATIENT UP TO USE BSC. ASSISTED BACK TO BED. POSIITONED FOR COMFORT. PATIENT DENIES ANY OTHER NEEDS AT THIS TIME. CALL LIGHT IN REACH.
--- NOTE | 2019-10-06 23:57 | NUR ---
REPORT FROM [facility]. PT CALLED TO USE BSC TO VOID. SOB WITH EXERTION AND SATS DEC TO 85%. 02 INC TO 6L NC. COUGH IS MORE FREQ WITH EXERTION. GIVEN ROBITUSSIN. T 99.3, GIVEN WARM BLANKET PER REQUEST.
--- NOTE | 2019-10-07 01:29 | NUR ---
UP TO BSC TO VOID. SOB WITH EXERTION RR TO 40 AND SATS TO LOW 80'S. T 99.3 02 INC TO 8L HIGH FLOW NC.
--- NOTE | 2019-10-07 01:54 | NUR ---
SATS CONT TO BE LOW 80'S DESPITE TURNING 02 UP TO 10L, RT SHIVANI HERE. SPOKE WITH DR ORTEGA AND WILL TRY INC 02. PT DENIES SOB AND WHILE RESP ARE TACHY THEY ARE NOT LABORED. 02 TO 15L HIGH FLOW NC.
--- NOTE | 2019-10-07 04:07 | NUR ---
PT BP SYST 80'S. DR ORTEGA CALLED. NOREPINEPHRINE INFUSION STARTED AT 2MCG/MIN. PT T 100 AND ALSO C/O HIP AND BACK PAIN. GIVEN 650MG TYLENOL PO. ALSO PLACED PILLOWS UNDER HIPS WITH SOME RELIEF.
--- NOTE | 2019-10-07 05:44 | NUR ---
PT C/O INC PELVIC/HIP PAIN. DR ORTEGA CALLED. PT GIVEN 5MG OXYCODONE PO. UP TO BSC TO VOID. LESS SOB.
--- NOTE | 2019-10-07 05:55 | NUR ---
PT SPOKE OF HOW ONSET OF PAIN MAY CHANGE HER MIND ABOUT END OF LIFE DECISION. WHEN GIVEN THE OXYCODONE EXPLAINED THAT IT WAS LOW DOSE AND AND EARLY TREATMENT FOR PAIN. WILL SEE HOW PATIENT RESPONDS.
--- NOTE | 2019-10-07 06:40 | NUR ---
LEVOPHED TO 3MCG/MIN, BP 85/47. PT SLEEPING
--- NOTE | 2019-10-07 07:45 | NUR ---
PT UP TO BEDSIDE COMMODE, VOIDED AND THEN COMPLETE LINE CHANGE DUE TO ICE PACK LEAKED. VOIDED AND BACK TO BED.
--- NOTE | 2019-10-07 10:32 | NUR ---
PER DR ORTEGA LEVOPHED DRIP OFF AT THIS TIME. FAMILY REMAINS AT THE BEDSIDE.
--- NOTE | 2019-10-07 11:25 | NUR ---
PT STARTED ON KRISTIN-SYNPHRINE DRIP AT THIS TIME, DUE TO DECREASED BP. SPO2 DECREASED TO 84 TO 86% ON 6L NC AT THIS TIME RT NOTIFIED.
--- NOTE | 2019-10-07 11:55 | NUR ---
increased cristel-synphrine to 35mcg/min at this time. due to BP
--- NOTE | 2019-10-07 12:47 | NUR ---
PT CONTIOUES TO TALK ON PHONE REGARDING WITH A FREIND, BOTH DAUGHTERS REMAIN AT THE BEDSIDE.
--- NOTE | 2019-10-07 13:17 | NUR ---
IV TAKEN OUT UPON RN REQUEST. CATH INTACT AND LOOKED GOOD. PATIENT ASKING FOR PAIN MEDS, RN NOTIFIED. CALL LIGHT IN REACH. NO FURTHER NEEDS AT THIS TIME.
--- NOTE | 2019-10-07 16:13 | NUR ---
PT ASKED FOR PAIN PATCH DR ORTEGA IN THE DEPARTMENT AND ORDERED ONE FOR PT ALSO AT THIS TIME MEDICATED WITH 5MG OXY AND 650 TYLENOL FOR PAIN. BOTH DAUGHTERS HAVE RETURNED AT THIS TIME.
--- NOTE | 2019-10-07 16:43 | NUR ---
FENTAYL PATCH 12MCG PLACED ON RIGHT SHOULDER
--- NOTE | 2019-10-07 18:12 | NUR ---
pt has been sleeping this afternoon more than usually. daughters remains at the bedside at this time.
--- NOTE | 2019-10-07 18:58 | NUR ---
PT MEDICATED WITH 5MG OXY PO AT THIS TIME. PT SITTING AT THE EDGE OF THE BED TRYING TO EAT A SANDWICHE. BOTH DAUGHTERS AT THE BEDSIDE.
--- NOTE | 2019-10-07 19:21 | NUR ---
pt back to bed at this time, cristel-drip increased to 35mcg/min at this time, family has left for the night. call light within reach, pt is on her right side.
--- NOTE | 2019-10-07 19:23 | NUR ---
see paper chart for vital signs
--- NOTE | 2019-10-07 20:11 | NUR ---
RESTING IN BED, GIVEN HS MEDS THAT INCLUDE ALPRAZOLAM AND ROBITUSSIN. IS READY FOR SLEEP. PT ASKING ABOUT HOME MED OF PILOCARPINE THAT SHE USES FOR DRY MOUTH. WILL MESSAGE DR ORTEGA.
--- NOTE | 2019-10-07 21:23 | NUR ---
SLEEPING OFF AND ON. FLORESITA NEB TX WELL.
--- NOTE | 2019-10-07 22:13 | NUR ---
PT UP TO BSC. PT STATES SHE FEELS WEAKER AND IS SL UNSTEADY ON FEET. IS ALSO A LITTLE FORGETFUL. ASSISTED BACK TO BED AND HELPED TO REPOSITION. NO SOB. SATS DEC TO MID 80'S WITH EXERTION. BACK TO 89% AFTER 10 MIN.
--- NOTE | 2019-10-08 00:28 | NUR ---
AWAKE, CHECKING NEWS ON PHONE. STATES HAVING LOW BACK PAIN 8/10. GIVEN 10MG OXYCODONE PO. T 99.9, GIVEN 650MG TYLENOL PO. ASSISTED TO REPOSITION AND PLACE ICE BACK TO BACK.
--- NOTE | 2019-10-08 02:07 | NUR ---
UP TO BSC TO VOID. NO SOB BUT DOES DESAT WITH ACTIVITY TO 80'S FRO MID 90'S. CONT TO USE ICE PACK TO LOW BACK. IS SHAKY ON FEET AND REQUIRES A LITTLE MORE ASSISTANCE TO GET UP AND BACK TO BED.
--- NOTE | 2019-10-08 03:35 | NUR ---
SLEEPING AT THIS TIME,
--- NOTE | 2019-10-08 04:51 | NUR ---
PT AWAKE, ASSISTED TO BSC TO VOID. REQUIRES INSTRUCTION ON HOW TO TURN ETC WHILE GETTING UP. IS UNSTEADY ON FEET BUT REQUIRES MINIMAL ASSIST. VOIDED 100ML MURKY ORANGE URINE. BACK TO BED AND ASSISTED TO R SIDE WITH ICE TO BACK. GIVEN 10MG OXYCODONE PO FOR BACK PAIN 02/16. LESS SOB THIS TIME.
--- NOTE | 2019-10-08 08:05 | NUR ---
PATIENT C/O FEELING DIZZY AND WOOZY THIS AM. PT REQUESTING HER FENTANYL PATCH TO BE REMOVED FROM HER SHOULDER. PT STATES HER PAIN WAS AVERAGING AT A 4, BUT PATIENT NOTES FEELING DIZZY JUST LAYING FLAT IN BED AND DOESNT' LIKE THE WAY SHE WAS FEELING. DENIES WANTING ANY BREAKFAST ORDERED HER DAUGHTERS ARE BRINGING HER IN FOOD. PT REMAINS ON 8 L HIGH FLOW WITH SP02 RANGING 86-90%. HR IN THE 110s. NEOSYNEPHRIN REMAINS ON AT 35 MCG/MIN. OXYGEN TURNED UP TO 9 L. PT WANTING TO MINIMIZE MOVEMENTS AT THIS TIME. CONTINUE TO MONITOR CLOSELY.
--- NOTE | 2019-10-08 08:21 | NUR ---
OXYGEN TURNED UP TO 11 L HI FLOW. PATIENT'S DAUGHTERS ON THEIR WAY TO [facility]S ROOM.
--- NOTE | 2019-10-08 12:01 | NUR ---
PATIENT TO GO DOWN TO CT SOON FOR CT TO RULE OUT PE. NEOSYNEPHRINE TO BE TITRATED DOWN MUCH TOLERATED. PT UNABLE TO VOID ON BED LE. IV STARTED IN RIGHT AC. PT TALKING WITH CHIEF INFORMATION SECURITY OFFICER AT THIS TIME WITH DAUGHTERS IN ROOM.
--- NOTE | 2019-10-08 12:30 | NUR ---
In and spoke with Anayeli and her two daughters. Anayeli several times stating she is not trying to hurt her childrens feelings, but she does not want to go to [place]. She wants to stay in [place] in her house and go home on hospice. Daughters state they will support her in her decisions, but attempting to get pt to agree to go to [place] or to a SNF. Daughters are very tearful at times and state pt could stay here until next Thurs. and keep getting treatment to spend time with them. Informed this is not possible. Addressed options 1. Snf, 2. Assisted living, 3. home on hospice. Daughters are concerned if neosynephrine gtt is stopped pt bp will become low and she will go into a coma. Discussed possibilities of what could happen, but reminded we don't know. Pt states she is tired, painful, and not wanting to cont. treatment. Pt does want CT today to determine is she has a PE. Pt became upset with daughters and states she wants to go home. Daughters are not ready to hear, pt is tired and not wanting to continue treatment. Daughters finally states, "its to much". Pt agrees to Ct later. Will speak with pt and family tomorrow. Spoke with Dr. Black and he states pt cannot remain in the hospital. He has reached the end of treatment for this pt.
--- NOTE | 2019-10-08 13:34 | NUR ---
PATIENT DOWN TO CT SCAN. PT TOLERATED MOVING OVER TO CT SCAN BED FAIRLY WELL. PT UP TO 15 L FOR THS MOVEMENT. PT STATES SHE IS HUNGRY. LINEN CHANGED ON BED WHILE PATIENT HAVING CT SCAN. IVF CONTINUE AT 75 ML/HR. VANCO TROUGH PENDING.
--- NOTE | 2019-10-08 14:32 | NUR ---
PHENYLEPHRINE TURNED OFF AT THIS TIME. PT GIVEN BED BATH AND TOLERATED WELL. PT REMAINS ON 12 L OF HI FLOW OXYGEN. DAUGHTERS REMAIN IN ROOM.
--- NOTE | 2019-10-08 14:53 | NUR ---
PT ASLEEP, MARILOU HAYES REQUESTED I LET PT REST WILL BE HEADED TO CT SOON AND WILL BE STRESSFUL ON HER.
--- NOTE | 2019-10-08 16:23 | NUR ---
DR. NEIL CALLED AND UPDATED ON PATIENT NEEDING 15 L NRB TO KEEP SP02 GREATER THAN 90%. PATIENT STILL BREATHING 28-34, BUT DOES NOT LOOK LABORED IN HER BREATHING. PT RESTING IN BED. HR REMAINS 130s. ORDER REC'D TO PLACE PATIENT ON VAPOTHERM.
--- NOTE | 2019-10-08 17:05 | NUR ---
RT IN ROOM PUTTING PATIENT ON VAPOTHERM AT THIS TIME.
--- NOTE | 2019-10-08 18:43 | NUR ---
PATIENT STATES TO HIS RN, "I DON'T KNOW WHAT TO DO, HOW MUCH LONGER DO I HAVE TO WEAR THIS?", REFERRING TO THE VAPOTHERM OXYGEN TUBING. PATIENT SEEMS SLIGHTLY MORE CONFUSED ABOUT EVENTS OF THE DAY. PT'S DAUGHTERS NOT HERE AT THIS TIME. HR CONTINUES TO ESCALATE, NOW MAINTAINING IN THE 140s. LAST BP 116/75. PATIENT STATES SHE WANTS COLD CEREAL FOR BREAKFAST. WHEN REMINDING PATIENT THAT SHE HAS A BAKED POTATO AT HER BEDSIDE THAT SHE REQUESTED FOR DINNER, SHE STATES, "THAT WAS SUPPOSED TO BE FOR DINNER YESTERDAY." THEN SHE ASKS, "IS IT MORNING OR NIGHT? I'M HAVING COGNITIVE DYSFUNCTION." PATIENT AT ONE POINT SAYS SEDennis WANTS TO DISCUSS THINGS WITH HER NEW DOCTOR, REFERRING TO DR. NEIL WHO JUST CAME ONTO SERVICE TODAY. WILL DISCUSS WITH .
--- NOTE | 2019-10-08 19:09 | NUR ---
DR. NEIL IN ROOM VISITING WITH PATIENT AT THIS TIME. PATIENT'S DAUGHTERS CALLED AND ASKED WHEN THEY ARE RETURNING TO HOSPITAL TO WHICH THEY STATE THEY ARE GOING TO RETURN SOON POSSIBLE. PATIENT ASKING LOTS OF QUESTIONS.
--- NOTE | 2019-10-08 21:15 | NUR ---
DAUGHTERS IN ROOM, LONG TALK WITH DR RASHAAD NEVES PT PROGNOSIS AND GOALS. PATIENTS AND FAMILY GOAL IS FOR PATIENT TO BE ABLE TO GO HOME ON HOSPICE. WILL CONT VAPOTHERM AND ABX TONIGHT BUT NO FURTHER TX FOR HR OR BP . WILL CONT TO TX PAIN. PT GIVEN 10MG OXYCODONE PO FOR PAIN, HS ALPRZOLAM, TYLENOL 650MG PO GIVEN FOR 100.2 TEMP.
--- NOTE | 2019-10-08 21:57 | NUR ---
REPOSITIONED, READY FOR SLEEP.
--- NOTE | 2019-10-09 00:20 | NUR ---
HAS BEEN SLEEPING WELL. REPOSITIONED TO L SIDE. DAUGHTERS IN ROOM.
--- NOTE | 2019-10-09 02:05 | NUR ---
PT SLEEPING. HR 120'S SAT 90%.
--- NOTE | 2019-10-09 04:35 | NUR ---
PT AWAKENED WHEN MEDS HUNG AND VAPOTHERM NEEDED TO BE REPOSITIONED. PT REPOSITIONED WITH DAUGHTERS HELP. PT DENIES NEED FOR PAIN MED, "ITS BETTER NOW THAT I AM NOT MOVING SO MUCH."
--- NOTE | 2019-10-09 06:48 | NUR ---
SLEEPING. FAMILY IN ROOM. HR 117, RR 22 SAT 90%. CONT ON VAPOTHERM 40L FLOW 80%.
--- NOTE | 2019-10-09 08:17 | NUR ---
SIMBA FROM CASE MANAGEMENT IN ROOM DISCUSSING COMFORT CARE PLANS WITH PATIENT AND HER DAUGHTERS. PATIENT AWAKENS EASILY UPON ADMISSION INTO ROOM. PT REMAINS ON 80% FI02 AND 35 L FLOW. SP02 REMAINS LOW AROUND 89-91%. RT NOW IN ROOM TO GIVE BREATHING TREATMENT. BREAKFAST ORDERED FOR PATIENT.
--- NOTE | 2019-10-09 08:25 | NUR ---
Spoke with Anayeli and daughters. They have come to agreement for patient to go home on hospice. Pt bp is low as neosynephrine was stopped last night. Daughters have cleared living room in pt's home for hospice equipment. Pt and daughter unsure of what hospice agency to use. Gave site for compare.gov. Daughter states [facility] has best rating and they choose it. Informed I will get orders and send chart now. H&P, progress notes, medication list, face sheet faxed to Mandi at [facility]. Attmepted to call, reached the answering service. They do not open until 0900.
--- NOTE | 2019-10-09 09:27 | NUR ---
PATIENT GIVEN ALL HER AM MEDS. PT EATING SMALL BITES OF HER BREAKFAST. PT'S DAUGHTER WINTER REMAINS IN ROOM AND HELPING PATIENT WITH HER WILL. CONTINUE TO MONITOR. PT REMAINS ON 80% FI02 AND 35 L VAPOTHERM. THACKER DRAINING CONCENTRAED URINE.
--- NOTE | 2019-10-09 10:48 | NUR ---
REPOSITIONED PATIENT ONTO HER BACK AND FLOATED HIPS WITH PILLOWS. PATIENT ASKED, "DO I LOOK UNCOMFORTABLE TO YOU?" DISCUSSED THIS WITH PATIENT AND TOLD HER TO LET US KNOW WHEN SHE IS UNCOMFORTABLE AND WE WILL HELP REPOSITION HER. HR IN THE 120s, SINUS TACH. SP02 94% ON 80% FI02 AND 35 L VAPOTHERM. PT'S DAUGHTER REMAINS IN ROOM.
--- NOTE | 2019-10-09 10:53 | NUR ---
Call from Antoinette from [facility]. [phone]. She request I give her phone number to patients daughters for any needs. Updated pt will go to hospice. Unsure when they will be able to admit. Pt will move to floor today on comfort care. Admit to hospice when they schedule.
--- NOTE | 2019-10-09 11:03 | NUR ---
PATIENT ON A REGULAR DIET WITH NEUTROPENIC PRECAUTIONS. SHE HAS HISTORY OF BREAST CANCER. PER CHART REVIEW, PATIENT PLANS TO GO HOME ON HOSPICE ONCE THE HOME IS ALL SET UP FOR HER. SHE LIKES CHOCOLATE ENSURE ENLIVE AND IS ORDERING ONE AT ALMOST EVERY MEAL. NO OTHER NUTRITION INTERVENTIONS NEEDED AT THIS TIME DUE TO PLAN TO GO TO COMFORT CARE. WILL REMAIN AVAILABLE IF NEEDED.
--- NOTE | 2019-10-09 12:20 | NUR ---
LITER FLOW ON VAPOTHERM TURNED DOWN TO 30 L, AND THEN DOWN TO 24 L AGAIN PER RT. THACKER DRAINING DILUTE YELLOW URINE AFTER 40 MG IV LASIX WAS GIVEN. HR IN THE 120s. PT RESTING.
--- NOTE | 2019-10-09 12:36 | NUR ---
FI02 TURNED DOWN TO 75% AT THIS TIME. SP02 WAS 95% PRIOR TO TITRATING DOWN. PT RESTING AND APPEARS COMFORTABLE. DAUGHTERS REMAIN IN ROOM. CONTINUE TO MONITOR.
--- NOTE | 2019-10-09 14:14 | NUR ---
DR. NEIL IN ROOM TO EVALUATE PATIENT. CONVERSATIONS HELD WITH PATIENT WELL WITH HER DAUGHTERS. PATIENT HAS BEEN ASKING FOR MORE PAIN MEDICATION AND SEEMS OVERALL MORE PAINFUL TODAY COMPARED TO YESTERDAY. PATIENT'S DAUGHTERS WANTING TO DISCUSS WITH DR. NEIL PLAN OF CARE MOVING FORWARD. HOPSICE WILL NOT LIKELY BE AVAILABLE FOR PATIENT TO TRANSITION TO UNTIL MONDAY. PATIENT AND HER DAUGHTERS DECIDE THAT THEY WANT PATIENT TO TRANSITION TO COMFORT CARE AT THIS TIME, TO OPTIMALLY CONTROL HER PAIN. PATIENT ASKING ABOUT LOGISITCS OF HER TRANSITION TO COMFORT CARE, AND HOW THIS WILL LOOK.
--- NOTE | 2019-10-09 14:28 | NUR ---
Dr. Mancilla stopped by office for update. Informed records have been sent to Hospice. I was informed there are 6 admits infront of Anayeli. They will do their best to admit this week. Dr. Mancilla plans on moving Anayeli to medical floor on comfort care until hospice can admit.
--- NOTE | 2019-10-09 14:30 | NUR ---
REPORT GIVEN TO MARILOU CANADA. PATIENT WILL TRANSITION TO MEDICAL FLOOR ROOM 112. COMFORT CARE ORDERS WILL START.
--- NOTE | 2019-10-09 15:09 | NUR ---
PT TO MEDSURG VIA BED, DAUGHTERS X2 WITH HER. RESP THERAPY IN TO ADJUST 02 EQUIPMENT PT TURNS TO HER SIDE, AND APPEARS COMFORTABLE. RESTING NOW EYES CLOSED.
--- NOTE | 2019-10-09 17:37 | NUR ---
PT AWAKE AFTER RESTING SOUNDLY SINCE TRANSFER. STATES SHE HURTS WHEN SHE MOVES BUT IS OTHERWISE COMFORTABLE. NO C/O SOB. MORPHINE GIVEN, EDUCATION PROVIDED FOR DAUGHTERS WHO WILL TAKE HER HOME ON HOSPICE R/T HOW TO CHOOSE WHICH MED AND WHAT MEDICATIONS DO. UNDERSTANDING VERBALIZED. DAUGHTERS ALSO ASSIST WITH REPOSITIONING, EDUCATED HOW TO DO THIS WITH 2 PEOPLE AND A DRAW SHEET. PT AGREES SHE IS COMFORTABLE FOOD ITEMS PROVIDED PER HER REQUEST
--- NOTE | 2019-10-09 19:50 | NUR ---
This nurse assumes care of pt. Pt sleeps sound with daughters x2 at bedside. Mendiola draining valentine urine. pt has not had any of her dinner yet per daughter.
--- NOTE | 2019-10-09 22:20 | NUR ---
PT RESTING WITH REGULAR RESPIRATORY
--- NOTE | 2019-10-09 22:22 | NUR ---
PT IS RESTING WITH EYES CLOSED AND REGULAR RESPIRATORY STATUS IN SEMI MARTINEZ POSITION. DAUGHTERS AT BEDSIDE
--- NOTE | 2019-10-10 00:11 | NUR ---
pt continues to rest with eyes closed, pt positioned in a right tilt in semi leong position.
--- NOTE | 2019-10-10 02:07 | NUR ---
pt resting, eyes closed. RR 20
--- NOTE | 2019-10-10 04:13 | NUR ---
pt resting, eyes closed. RR 19
--- NOTE | 2019-10-10 06:39 | NUR ---
pt awake to nurse at bedside. Pt asks for sips of water and a snack. C/O having back disc. 01/16 with movement and would like p.o pain Rx for now. Pt takes a few bites of apple sauce to have something with her pills. Repositions self in bed and denies further needs at this time.
--- NOTE | 2019-10-10 07:34 | NUR ---
0700: Report recieved from Komal ZAMARRIPA. Pt sleeping, call henderson within reach.
--- NOTE | 2019-10-10 09:00 | NUR ---
In to check on pt and daughters. Anayeli states had a good night, girls are both present. Deny need.
--- NOTE | 2019-10-10 09:20 | NUR ---
checked on patient. patient in bed resting, family in room. no needs at this time.
--- NOTE | 2019-10-10 10:00 | NUR ---
Daughter Bhumika requests a notary as Anayeli has completed will. Called medical records and notary will go to pts room. Daughter asks if she can email the will to the RN as it was completed on line. Email recieved and printed and taken to daughter in the room.
--- NOTE | 2019-10-10 10:15 | NUR ---
DID NOT FLUSH IV. PATIENT WORKING ON BEING DISCHARGED HOSPICE. WILL BE DC'D SOON.
--- NOTE | 2019-10-10 10:20 | NUR ---
LIMITED MORNING ASSESSMENT. PT PREPARING TO LEAVE FOR HOME ON HOSPICE. COMMUNICATED PAIN AT 6/10 AND MEDICATED WITH PRN PAIN MEDICATION. CALL LIGHT WITHIN REACH AND DAUGHTERS AT BEDSIDE.
--- NOTE | 2019-10-10 11:35 | NUR ---
THACKER EMPTIED AT THIS TIME. PT SLEEPING.
--- NOTE | 2019-10-10 11:45 | NUR ---
In to tell Anayeli hatch. Notified by Bhumika equipment has not arrived. Called Mandi at Hospice and she called their DME company. Equipment will arrive in 10 min. Updated pt is the wc getting ready to transport to home per wc van. Assured by [facility], equipment will be there on her arrival. Planned to send pt home with portable 02, but it maxes at 6l pt useing 10. Sm 02 tank sent with pt and daughters will return.
--- NOTE | 2019-10-10 14:26 | NUR ---
PT RESTING IN BED, DAUGHTER JOSE AT BS. PT TO DC HOME ON HOSPICE. GAVE SOME GUIDANCE FOR BOTH FOR HOSPICE, THEY BOTH WERE OPEN AND RECEPTIVE. ENCOURAGED THEM TO UTILIZE FACE PAINTER SV[employer]. FROM HOSPICE, THEY ACKNOWLEDGED. STAFF IN TO CONTINUE GETTING PT READY FOR DC.ARRANGED WITH CM TO GET CARE RIDE FOR JOSE PT THANKED ME, GAVE BLESSING
== END 2019-10-10 12:15 | disposition home or self-care (01) | DRG 871 ==
LOC: EDSTATUS 10:44 → MS 14:10 → CCU 22:10 → MS 22:10
PROVIDERS: ADMIT Internal Medicine
PROC: 3E033XZ Introduction of Vasopressor into Peripheral Vein, Percutaneous Approach (ICD-10-PCS; 2019-10-02)
PROC: 02HV33Z Insertion of Infusion Device into Superior Vena Cava, Percutaneous Approach (ICD-10-PCS; principal; 2019-10-04)
PROC: 30233N1 Transfusion of Nonautologous Red Blood Cells into Peripheral Vein, Percutaneous Approach (ICD-10-PCS; 2019-10-04)
DX: A41.50 Gram-negative sepsis, unspecified (principal); J15.6 Pneumonia due to other Gram-negative bacteria; R65.21 Severe sepsis with septic shock; J96.01 Acute respiratory failure with hypoxia; D61.818 Other pancytopenia; J44.0 Chronic obstructive pulmonary disease with (acute) lower respiratory infection; I47.1 Supraventricular tachycardia; C78.02 Secondary malignant neoplasm of left lung; C78.01 Secondary malignant neoplasm of right lung; C79.51 Secondary malignant neoplasm of bone; F32.9 Major depressive disorder, single episode, unspecified; E86.0 Dehydration; J30.1 Allergic rhinitis due to pollen; C50.911 Malignant neoplasm of unspecified site of right female breast; E83.39 Other disorders of phosphorus metabolism; Z51.5 Encounter for palliative care; Z79.899 Other long term (current) drug therapy; Z66 Do not resuscitate; Z79.51 Long term (current) use of inhaled steroids
CPT/HCPCS: 36415; 36430; 71045; 71046; 71260; 80048; 80053; 80069; 80076; 80202; 81001; 83605; 83735; 84100; 85025; 86644; 86850; 86900; 86901; 86920; 87040; 87088; 94640; 94799; J0692; J1447; J1940; J1956; J2248; J2270; J2370; J2405; J3370; J3475; J7030; J7040; J7050; J7060; J7121; P9040; Q9967